=== PATIENT | female | born 1955 | race Hispanic/Latino ===

== ENCOUNTER 2017-09-08 23:10 | Emergency (ER) | payer SELFPAY ==
[2017-09-08] MEDS ORDERED: METHYLPREDNISOLONE 125 MG INJ ONE (23:41)
[2017-09-08] MEDS ORDERED: DIPHENHYDRAMINE 50 MG/ML VIAL ONE (23:42)
[2017-09-08] MEDS ORDERED: NA CHLORIDE 0.9% 1,000 ML ONE (23:42)
[2017-09-08] MEDS ORDERED: FAMOTIDINE 20 MG/2 ML VIAL IV ONE (23:42)
[2017-09-09 00:01] LABS: Absolute Lymphocytes (CBC) 1.4 K/uL (0.7-4.9); Absolute Neutrophil 4.2 K/uL (1.8-8.0); Basophils % 0.3 % (0-1.3); Hematocrit 41.3 % (36.0-45.0); Lymphocytes % 24.9 % (15.3-44.8); MCH 29.6 pg (27.0-35.0); MCV 89.1 fL (80-100); MPV 10.2 fL (7.6-11.3); Monocytes % 0.7 % (3.3-12.3); RBC Red Blood Cell Count 4.63 M/uL (3.86-4.86)
[2017-09-09 00:12] LABS: Protime INR 1.04
[2017-09-09 00:16] LABS: Potassium 3.5 mEq/L (3.6-5.0)
[2017-09-09] MEDS ORDERED: ACETAMINOPHEN 500 MG TAB ONE (00:19)
[2017-09-09 00:22] LABS: Albumin 4.3 g/dL (3.2-5.5); Bilirubin Direct 0.1 mg/dL (0-0.2); Bilirubin Total 0.3 mg/dL (0.3-1.2); Magnesium 1.8 mg/dL (1.8-2.5); Protein, Total 7.5 g/dL (6.0-8.3)
[2017-09-09 00:24] LABS: CKMB Creatine Kinase MB 6.5 ng/ml (0.3-4.0)
[2017-09-09] MEDS ORDERED: AMOX/K CLAV 875 MG TAB ONE (01:25)
[2017-09-09] MEDS ORDERED: CEFTRIAXONE 1000 MG/VIAL ONE (01:25)
[2017-09-09] MEDS ORDERED: POTASSIUM CL SA 10 MEQ TAB PO ONE (01:25)
--- NOTE | 2017-09-09 01:25 | ER ---
Nurse's Notes 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 tl2 Pt reports a tightness in her throat and states difficulty breathing. Pt taking short breaths in triage. Pt also complains of a pain in the back of her neck. Transition of care: patient was not received from another setting of care. Onset of symptoms was September 08, 2017 at 22:50. Initial Sepsis Screen: Does the patient meet any 2 criteria? RR > 20 per min. HR > 90 bpm. No. Patient's initial sepsis screen is negative. Does the patient have a suspected source of infection? No. Patient's initial sepsis screen is negative. Care prior to arrival: None. 23:19 Method Of Arrival: EMS: [facility] tl2 23:19 Acuity: ELSY 2 tl2 Triage Assessment: 23:22 General: Appears in no apparent distress. uncomfortable, Behavior is cooperative, tl2 appropriate for age, anxious, crying. Pain: Complains of pain in base of the skull Pain does not radiate. Neuro: Level of Consciousness is awake, alert, obeys commands, Oriented to person, place, time, situation. Cardiovascular: Denies chest pain. Respiratory: Reports shortness of breath Airway is patent Respiratory effort is labored, Respiratory pattern is tachypnea Breath sounds are clear bilaterally. Onset: The symptoms/episode began/occurred just prior to arrival, the patient has moderate shortness of breath. GI: No signs and/or symptoms were reported involving the gastrointestinal system. : No signs and/or symptoms were reported regarding the genitourinary system. Derm: Skin is pink, warm \T\ dry. Historical: - Allergies: 23:22 No Known Allergies; tl2 - Home Meds: 23:22 Lisinopril Oral [Active]; tl2 - PMHx: 23:22 Hypertension; tl2 - Immunization history:: Adult Immunizations up to date. - Social history:: Smoking status: Patient/guardian denies using tobacco. Screenin:25 Abuse screen: Denies threats or abuse. Nutritional screening: No deficits noted. tl2 Tuberculosis screening: No symptoms or risk factors identified. Fall Risk None identified. Assessment: 23:25 General: see triage assessment. tl2 23:27 Cardiovascular: Rhythm is sinus tachycardia. tl2 09/09 01:53 Reassessment: will discharge if repeat cardiac enzymes are negative. tl2 02:30 Reassessment: Patient appears in no apparent distress at this time. Patient and/or tl2 family updated on plan of care and expected duration. Pain level reassessed. Patient is alert, oriented x 3, equal unlabored respirations, skin warm/dry/pink. Pt and family verbalized understanding of discharge instructions, need for follow up and prescription usage Patient states feeling better. Vital Signs: 09/08 23:22 BP 154 / 104; Pulse 123; Resp 19; Temp 99.1(O); Pulse Ox 88% on R/A; Weight 63.5 kg; tl2 Height 4 ft. 11 in. (149.86 cm); 23:25 Pulse Ox 95% on 6 lpm NC; tl2 09/09 00:17 BP 159 / 81; Pulse 119; Resp 25; Temp 100.7; Pulse Ox 97% on 3 lpm NC; tl2 01:20 BP 135 / 75; Pulse 107; Resp 25; Pulse Ox 93% on R/A; tl2 02:30 BP 128 / 82; Pulse 102; Resp 20; Temp 98.2(O); Pulse Ox 94% on R/A; tl2 09/08 23:22 Body Mass Index 28.28 (63.50 kg, 149.86 cm) tl2 ED Course: 09/08 23:14 Patient arrived in ED. rg2 23:21 Triage completed. tl2 23:22 Arm band placed on right wrist. tl2 23:25 Patient has correct armband on for positive identification. Bed in low position. Call tl2 light in reach. Side rails up X 1. Adult w/ patient. 23:25 Inserted saline lock: 20 gauge in right antecubital area, using aseptic technique. tl2 Blood collected. 23:27 Conrad Guillen MD is Attending Physician. [facility] 23:45 Radiology exam delayed due to lab results not completed at this time. (BUN/Creatinine). nj 23:50 XRAY Chest (1 view) In Process Unspecified. EDMS 05 00:02 Radiology exam delayed due to lab results not completed at this time. (BUN/Creatinine). mw3 00:[address] via stretcher. nj 00:47 CT Head Brain wo Cont In Process Unspecified. EDMS 00:53 CT completed. Patient tolerated procedure well. Patient moved back from CT. nj 00:55 CT Chest For PE Angio In Process Unspecified. EDMS 02:30 No provider procedures requiring assistance completed. IV discontinued, intact, tl2 bleeding controlled, No redness/swelling at site. Pressure dressing applied. Administered Medications: 09/08 23:49 Drug: Pepcid 20 mg Route: IVP; Site: right antecubital; tl2 09/09 02:33 Follow up: Response: No adverse reaction tl2 09/08 23:49 Drug: Benadryl 25 mg Route: IVP; Site: right antecubital; tl2 09/09 02:33 Follow up: Response: No adverse reaction tl2 09/08 23:49 Drug: SOLU-Medrol 125 mg Route: IVP; Site: right antecubital; tl2 09/09 02:33 Follow up: Response: No adverse reaction tl2 09/08 23:49 Drug: NS 0.9% 1000 ml Route: IV; Rate: 125 ml/hr; Site: right antecubital; tl2 09/09 02:33 Follow up: IV Status: Completed infusion tl2 00:18 Drug: Tylenol 1000 mg Route: PO; tl2 02:32 Follow up: Response: No adverse reaction; Temperature is decreased tl2 01:29 Drug: Potassium Chloride 20 mEq Route: PO; tl1 02:32 Follow up: Response: No adverse reaction tl2 01:29 Drug: Rocephin - (cefTRIAXone) 1 grams Route: IVPB; Infused Over: 30 mins; Site: right tl1 antecubital; 02:32 Follow up: IV Status: Completed infusion; IV Intake: 100ml tl2 01:29 Drug: Augmentin 875 mg Route: PO; tl1 02:32 Follow up: Response: No adverse reaction tl2 Intake: 02:32 IV: 100ml; Total: 100ml. tl2 Outcome: 01:25 Discharge ordered by . kennedy 02:30 Discharged to home ambulatory, with family. tl2 02:30 Condition: stable 02:30 Discharge instructions given to patient, family, Instructed on discharge instructions, follow up and referral plans. medication usage, Demonstrated understanding of instructions, follow-up care, medications, Prescriptions given X 1. 02:34 Patient left the ED. tl2 Addendum: 09/12/2017 16:07 Addendum: Culture Results: Positive urine culture. Phone call Attempt #1 pt i w asymptomatic, is currently on Augmentin, no changes needed. 09/14/2017 08:13 Addendum: Culture Results: Positive urine culture. No further action required. a a5 Signatures: Dispatcher [employer] EDMS Shwetha Herrera rg2 Conrad Guillen MD MD cha Williams, Irene RN RN Marla Kim RN RN aa5 Erum Sommers RN RN tl1 Leidy David RN RN tl2 Demetris Hale Michelle mw3
--- NOTE | 2017-09-09 01:25 | EDPHYS ---
Physician Documentation [facility] Name: Mary Pennington Age: 62 yrs Sex: Female : 1955 Arrival Date: 09/08/2017 Time: 23:14 Bed 4 Private MD: ED Physician Conrad Guillen HPI: 09/08 23:38 This 62 yrs old Female presents to ER via EMS with complaints of Breathing kennedy Difficulty. 23:38 The patient has shortness of breath at rest, with light activity. Onset: The kennedy symptoms/episode began/occurred just prior to arrival. Duration: The symptoms are continuous. The patient's shortness of breath has no apparent modifying factors. Associated signs and symptoms: Pertinent positives: non-productive cough, dizziness, nausea. Severity of symptoms: At their worst the symptoms were mild moderate in the emergency department the symptoms are unchanged. The patient has not experienced similar symptoms in the past. Historical: - Allergies: 23:22 No Known Allergies; tl2 - Home Meds: 23:22 Lisinopril Oral [Active]; tl2 - PMHx: 23:22 Hypertension; tl2 - Immunization history:: Adult Immunizations up to date. - Social history:: Smoking status: Patient/guardian denies using tobacco. ROS: 23:39 Constitutional: Negative for fever, chills, and weight loss, Eyes: Negative for injury, kennedy pain, redness, and discharge, ENT: Negative for injury, pain, and discharge, Neck: Negative for injury, pain, and swelling, Cardiovascular: Negative for chest pain, palpitations, and edema, Abdomen/GI: Negative for abdominal pain, nausea, vomiting, diarrhea, and constipation, Back: Negative for injury and pain, : Negative for injury, bleeding, discharge, and swelling, MS/Extremity: Negative for injury and deformity, Skin: Negative for injury, rash, and discoloration, Neuro: Negative for headache, weakness, numbness, tingling, and seizure, Psych: Negative for depression, anxiety, suicide ideation, homicidal ideation, and hallucinations, Allergy/Immunology: Negative for hives, rash, and allergies, Endocrine: Negative for neck swelling, polydipsia, polyuria, polyphagia, and marked weight changes, Hematologic/Lymphatic: Negative for swollen nodes, abnormal bleeding, and unusual bruising. 23:39 Respiratory: Positive for cough, shortness of breath, at rest. Exam: 23:39 Constitutional: This is a well developed, well nourished patient who is awake, alert, kennedy and in no acute distress. Head/Face: Normocephalic, atraumatic. Eyes: Pupils equal round and reactive to light, extra-ocular motions intact. Lids and lashes normal. Conjunctiva and sclera are non-icteric and not injected. Cornea within normal limits. Periorbital areas with no swelling, redness, or edema. ENT: Nares patent. No nasal discharge, no septal abnormalities noted. Tympanic membranes are normal and external auditory canals are clear. Oropharynx with no redness, swelling, or masses, exudates, or evidence of obstruction, uvula midline. Mucous membranes moist. Neck: Trachea midline, no thyromegaly or masses palpated, and no cervical lymphadenopathy. Supple, full range of motion without nuchal rigidity, or vertebral point tenderness. No Meningismus. Chest/axilla: Normal chest wall appearance and motion. Nontender with no deformity. No lesions are appreciated. Cardiovascular: Regular rate and rhythm with a normal S1 and S2. No gallops, murmurs, or rubs. Normal PMI, no JVD. No pulse deficits. Respiratory: Lungs have equal breath sounds bilaterally, clear to auscultation and percussion. No rales, rhonchi or wheezes noted. No increased work of breathing, no retractions or nasal flaring. Abdomen/GI: Soft, non-tender, with normal bowel sounds. No distension or tympany. No guarding or rebound. No evidence of tenderness throughout. Back: No spinal tenderness. No costovertebral tenderness. Full range of motion. Female : Normal external genitalia. Skin: Warm, dry with normal turgor. Normal color with no rashes, no lesions, and no evidence of cellulitis. MS/ Extremity: Pulses equal, no cyanosis. Neurovascular intact. Full, normal range of motion. Neuro: Awake and alert, GCS 15, oriented to person, place, time, and situation. Cranial nerves II-XII grossly intact. Motor strength 5/5 in all extremities. Sensory grossly intact. Cerebellar exam normal. Normal gait. Psych: Awake, alert, with orientation to person, place and time. Behavior, mood, and affect are within normal limits. 23:39 Musculoskeletal/extremity: DVT Exam: No signs of deep vein thrombosis. no pain, no swelling, no tenderness, negative Homans' sign noted on exam, no appreciated bluish discoloration, no erythema, no increased warmth. Vital Signs: 23:22 BP 154 / 104; Pulse 123; Resp 19; Temp 99.1(O); Pulse Ox 88% on R/A; Weight 63.5 kg; tl2 Height 4 ft. 11 in. (149.86 cm); 23:25 Pulse Ox 95% on 6 lpm NC; tl2 09/09 00:17 BP 159 / 81; Pulse 119; Resp 25; Temp 100.7; Pulse Ox 97% on 3 lpm NC; tl2 01:20 BP 135 / 75; Pulse 107; Resp 25; Pulse Ox 93% on R/A; tl2 02:30 BP 128 / 82; Pulse 102; Resp 20; Temp 98.2(O); Pulse Ox 94% on R/A; 2 09/08 23:22 Body Mass Index 28.28 (63.50 kg, 149.86 cm) tl2 MDM: 09/08 23:27 Patient medically screened. [facility] 23:40 Data reviewed: vital signs, nurses notes, lab test result(s), EKG, radiologic studies, [facility] CT scan, plain films. 09/08 23:37 Order name: Basic Metabolic Panel; Complete Time: 00:52 [facility] 09/08 23:37 Order name: BNP; Complete Time: 00:52 [facility] 09/08 23:37 Order name: CBC with Diff; Complete Time: 00:52 [facility] 09/08 23:37 Order name: Ckmb; Complete Time: 00:52 [facility] 09/08 23:37 Order name: CPK; Complete Time: 00:52 [facility] 09/08 23:37 Order name: LFT's; Complete Time: 00:52 [facility] 09/08 23:37 Order name: Magnesium; Complete Time: 00:52 [facility] 09/08 23:37 Order name: PT-INR; Complete Time: 00:52 [facility] 09/08 23:37 Order name: Ptt, Activated; Complete Time: 00:52 [facility] 09/08 23:37 Order name: Troponin (emerg Dept Use Only); Complete Time: 00:52 [facility] 09/08 23:37 Order name: Lipase; Complete Time: 00:52 [facility] 09/08 23:38 Order name: Urine Culture [facility] 09/08 23:38 Order name: Blood Culture Adult (2) [facility] 09/08 23:38 Order name: Flu; Complete Time: 00:52 [facility] 09/08 23:37 Order name: XRAY Chest (1 view) [facility] 09/08 23:37 Order name: EKG; Complete Time: 23:38 [facility] 09/08 23:37 Order name: CT Head Brain wo Cont [facility] 09/08 23:37 Order name: CT Chest For PE Angio [facility] 09/09 01:03 Order name: Ckmb; Complete Time: 01:58 [facility] 09/09 01:03 Order name: Creatine Phosphokinase; Complete Time: 01:58 [facility] 09/09 01:03 Order name: Troponin (emerg Dept Use Only); Complete Time: 01:58 [facility] 09/09 01:39 Order name: Urine Dipstick--Ancillary (enter results) [facility] 09/08 23:37 Order name: Cardiac monitoring; Complete Time: 23:39 [facility] 09/08 23:37 Order name: EKG - Nurse/Tech; Complete Time: 23:39 [facility] 09/08 23:37 Order name: IV Saline Lock; Complete Time: 23:39 [facility] 09/08 23:37 Order name: Labs collected and sent; Complete Time: 23:39 [facility] 09/08 23:37 Order name: O2 Per Protocol; Complete Time: 23:39 [facility] 09/08 23:37 Order name: O2 Sat Monitoring; Complete Time: 23:39 [facility] 09/08 23:37 Order name: Urine Dipstick-Ancillary (obtain specimen); Complete Time: 01:20 [facility] 09/09 01:03 Order name: Repeat Cardiac Enzymes at: now please; Complete Time: 01:19 [facility] Administered Medications: 23:49 Drug: Pepcid 20 mg Route: IVP; Site: right antecubital; 09/09 02:33 Follow up: Response: No adverse reaction 09/08 23:49 Drug: Benadryl 25 mg Route: IVP; Site: right antecubital; 09/09 02:33 Follow up: Response: No adverse reaction 09/08 23:49 Drug: SOLU-Medrol 125 mg Route: IVP; Site: right antecubital; 09/09 02:33 Follow up: Response: No adverse reaction 09/08 23:49 Drug: NS 0.9% 1000 ml Route: IV; Rate: 125 ml/hr; Site: right antecubital; tl2 09/09 02:33 Follow up: IV Status: Completed infusion tl2 00:18 Drug: Tylenol 1000 mg Route: PO; tl2 02:32 Follow up: Response: No adverse reaction; Temperature is decreased tl2 01:29 Drug: Potassium Chloride 20 mEq Route: PO; tl1 02:32 Follow up: Response: No adverse reaction tl2 01:29 Drug: Rocephin - (cefTRIAXone) 1 grams Route: IVPB; Infused Over: 30 mins; Site: right tl1 antecubital; 02:32 Follow up: IV Status: Completed infusion; IV Intake: 100ml tl2 01:29 Drug: Augmentin 875 mg Route: PO; tl1 02:32 Follow up: Response: No adverse reaction tl2 Disposition: 09/09/17 01:25 Discharged to Home. Impression: Dyspnea, Fever, unspecified, Hypokalemia. - Condition is Fair. - Discharge Instructions: Fever, Adult, Upper Respiratory Infection, Adult, Fever, Adult, [id number]. - Prescriptions for Augmentin 875- 125 mg Oral Tablet - take 1 tablet by ORAL route every 12 hours for 10 days; 20 tablet. - Medication Reconciliation Form, Thank You Letter, Antibiotic Education, Prescription Opioid Use form. - Follow up: Private Physician; When: 2 - 3 days; Reason: Recheck today's complaints, Continuance of care, Re-evaluation by your physician. - Problem is new. - Symptoms have improved. Signatures: Dispatcher [employer] [facility] Conrad Guillen MD MD cha Lasagna, Tonya, RN RN tl1 Leidy David RN RN tl2 Corrections: (The following items were deleted from the chart) 02:34 01:25 09/09/2017 01:25 Discharged to Home. Impression: Dyspnea; Fever, unspecified; tl2 Hypokalemia. Condition is Fair. Discharge Instructions: Fever, Adult, Upper Respiratory Infection, Adult, Fever, Adult, [id number]. Prescriptions for Augmentin 875-125 mg Oral Tablet - take 1 tablet by ORAL route every 12 hours for 10 days; 20 tablet. and Forms are Medication Reconciliation Form, Thank You Letter, Antibiotic Education, Prescription Opioid Use. Follow up: Private Physician; When: 2 - 3 days; Reason: Recheck today's complaints, Continuance of care, Re-evaluation by your physician. Problem is new. Symptoms have improved. kennedy
[2017-09-09] MEDS ORDERED: NA CHLORIDE 0.9% 100 ML IV ONE (01:26)
[2017-09-09 01:51] LABS: CKMB Creatine Kinase MB 4.9 ng/ml (0.3-4.0)
[2017-09-09 02:19] LABS: Urine Blood TRACE (NEG); Urine Glucose NEGATIVE (NEG); Urine Protein NEGATIVE (NEG)
--- NOTE | 2017-09-09 06:28 | EKG ---
Test Date: 2017-09-08 Test Time: 23:20:10 Gas Examiner: KIERSTEN MEASUREMENT RESULTS: Intervals: Rate: 124 WV: 138 QRSD: 72 QT: 330 QTc: 474 Cameron: P: 22 WV: 138 QRS: -12 T: 31 INTERPRETIVE STATEMENTS: Sinus tachycardia Moderate voltage criteria for LVH, may be normal variant Borderline ECG Compared to ECG 06/02/1996 16:33:00 Sinus rhythm no longer present Electronically Signed On 09-09-17 06:27:53 CDT by Beck Anne
--- NOTE | 2017-09-09 08:35 | RAD REPORT ---
EXAM DESCRIPTION: RAD - Chest Single View - 09/08/2017 11:50 pm CLINICAL HISTORY: Dyspnea, chest tightness, shortness of breath COMPARISON: None. TECHNIQUE: AP portable chest image was obtained 2346 hours . FINDINGS: Lungs are clear. Heart and vasculature are normal. No measurable pleural effusion and no p neumothorax. No gross bony abnormality seen. No acute aortic findings suspected. IMPRESSION: No acute cardiopulmonary process.
--- NOTE | 2017-09-09 08:38 | RAD REPORT ---
EXAM DESCRIPTION: CT - Head Brain Wo Cont - 09/09/2017 6:36 am CLINICAL HISTORY: Hypertension, altered mental status, seizure like activity A preliminary written report was provided at the time of the study, and the report was reviewed prio r to final dictation. COMPARISON: None. TECHNIQUE: Axial 5 mm thick images of the head were obtained without IV contrast. All CT scans are performed using dose optimization technique as appropriate and may include automated exposure control or mA/KV adjustment according to patient size. FINDINGS: No intracranial hemorrhage, mass, edema or shift of mid-line structures. No acute infarcti on changes seen. No abnormal extra-axial fluid collections. Ventricles are normal. Mastoid air cells and visualized portions of the paranasal sinuses are clear. No acute bony findings. IMPRESSION: Negative non-contrast CT head examination.
--- NOTE | 2017-09-09 08:43 | RAD REPORT ---
EXAM DESCRIPTION: CT - Chest For Pe Angio - 09/09/2017 12:55 am CLINICAL HISTORY: Chest pain, shortness of breath A preliminary written report was provided at the time of the study, and the report was reviewed prio r to final dictation. COMPARISON: Chest films same date TECHNIQUE: Dynamically enhanced 3 mm thick images of the chest were obtained during administration o f approximately 150mL Isovue 370 IV contrast. Coronal and oblique reconstruction images were generate d and reviewed. Exam utilizes a protocol to evaluate the pulmonary arterial tree. All CT scans are performed using dose optimization technique as appropriate and may include automated exposure control or mA/KV adjustment according to patient size. FINDINGS: No pulmonary emboli are identified. Far peripheral subsegmental branch assessment is limit ed due to motion. Emboli are not suspected. The aorta as imaged shows no acute or suspicious finding. No pericardial thickening or effusion. No mass or consolidation. Lung markings are accentuated by motion. Mild edema or infiltrate would be possible. No pleural based mass. No pleural effusion or pleural thickening. No mediastinal or hilar suspicious masses. No chest wall masses or abnormal axillary lymphadenopathy. IMPRESSION: No pulmonary emboli identified. Far peripheral subsegmental branch assessment is limited but emboli are not suspected. Lung markings are accentuated by motion. Minimal interstitial edema or infiltrate could be masked. No other significant or suspicious findings.
== END 2017-09-09 02:34 | disposition home or self-care (01) ==
LOC: ER 23:10
DX: R50.9 Fever, unspecified (principal); E87.6 Hypokalemia; I10 Essential (primary) hypertension
CPT/HCPCS: 36415; 70450; 71045; 71275; 80048; 80076; 81003; 82550; 82553; 83690; 83735; 83880; 84484; 85025; 85610; 85730; 87040; 87077; 87086; 87088; 87186; 87804; 93005; 96361; 96365; 96375; 99285; J2930; J7030

== ENCOUNTER 2018-12-31 17:57 | Emergency (ER) | payer SELFPAY ==
[2018-12-31 19:18] LABS: Absolute Lymphocytes (CBC) 1.6 K/uL (0.7-4.9); Basophils % 0.1 % (0-1.3); Hematocrit 38.4 % (36.0-45.0); MPV 9.9 fL (7.6-11.3); RBC Red Blood Cell Count 4.29 M/uL (3.86-4.86)
--- NOTE | 2018-12-31 19:51 | RAD REPORT ---
EXAM DESCRIPTION: US - Extremity Venous Uni Ltd - 12/31/2018 7:39 pm CLINICAL HISTORY: Right leg pain and swelling COMPARISON: None. TECHNIQUE: Real-time sonographic evaluation of the right lower extremity deep venous systems was per formed. FINDINGS: Normal compressibility, flow augmentation, phasic flow and spontaneous flow are identified in the right lower extremity common femoral, superficial femoral, popliteal and posterior tibial vei ns. No intraluminal filling defects seen. IMPRESSION: No DVT in the right lower extremity.
[2018-12-31 19:59] LABS: BUN Blood Urea Nitrogen 12 mg/dL (7-18); Bicarbonate 25 mmol/L (21-32); Glucose Level 94 mg/dL (74-106); Potassium 4.3 mmol/L (3.5-5.1); Sodium Level 139 mmol/L (136-145); Troponin (Emerg Dept Use Only) < 0.02 ng/mL (0.0-0.045)
--- NOTE | 2018-12-31 20:38 | RAD REPORT ---
EXAM DESCRIPTION: CT - Chest For Pe Angio - 12/31/2018 8:24 pm CLINICAL HISTORY: DYSPNEA COMPARISON: Chest For Pe Angio dated 09/09/2017 TECHNIQUE: Dynamically enhanced 3 mm thick images of the chest were obtained during administration o f approximately 150mL Isovue 370 IV contrast. Coronal and oblique MIP reconstruction images were gene rated and reviewed. Exam utilizes a protocol to evaluate the pulmonary arterial tree. All CT scans are performed using dose optimization technique as appropriate and may include automated exposure control or mA/KV adjustment according to patient size. FINDINGS: No pulmonary emboli are identified. The aorta as imaged shows no acute or suspicious finding. No pericardial thickening or effusion. No focal mass or consolidation. Interstitial markings are prominent, accentuated by motion. There is hazy ground-glass airspace opacities scattered in the posterior lower lung hood. No pleural effusio n or pleural thickening. No mediastinal or hilar suspicious masses. No chest wall masses or abnormal axillary lymphadenopathy. IMPRESSION: No pulmonary emboli identified. No focal mass or consolidation of the lung parenchyma. Interstitial and hazy alveolar opacities are p resent suggesting an alveolitis/pneumonitis process.
--- NOTE | 2018-12-31 21:17 | EDPHYS ---
[facility] Name: Mary Pennington Age: 63 yrs Sex: Female : 1955 Arrival Date: 12/31/2018 Time: 18:00 Bed 8 Private MD: ED Physician Mauro Yancey HPI: 12/31 21:57 This 63 yrs old Female presents to ER via Ambulatory with complaints of kdr Abnormal Lab Results. 21:57 The patient has been having lower extremity pain and swelling mostly the right leg for kdr the past several months. She had a recent blood draw which showed an elevated DD. She was sent to the ED for evaluation. She has also c/o pain to her upper extremities when trying to lift her arms over her head. With occasional SOB. Onset: The symptoms/episode began/occurred gradually, 2 month(s) ago. Severity of symptoms: At their worst the symptoms were mild in the emergency department the symptoms are unchanged. The patient has experienced similar episodes in the past, chronically, Slowly worsening . The patient has not recently seen a physician. Historical: - Allergies: 18:13 Unknown diuretic; aa5 - Home Meds: 18:15 gabapentin 100 mg oral cap 3 times per day [Active]; lisinopril 20 mg Oral tab 1 tab aa5 once daily [Active]; spironolactone 25 mg Oral tab 1 tab once daily [Active]; - PMHx: 18:13 Hypertension; aa5 - PSHx: 18:13 cyst removed; Tubal ligation; aa5 - Immunization history:: Adult Immunizations unknown. - Social history:: Smoking status: Patient/guardian denies using tobacco. - Ebola Screening: : No symptoms or risks identified at this time. ROS: 21:57 Constitutional: Negative for fever, chills, and weight loss, Eyes: Negative for injury, kdr pain, redness, and discharge, Neck: Negative for injury, pain, and swelling, Cardiovascular: Negative for chest pain, palpitations, and edema, Respiratory: Negative for shortness of breath, cough, wheezing, and pleuritic chest pain, Abdomen/GI: Negative for abdominal pain, nausea, vomiting, diarrhea, and constipation, Back: Negative for injury and pain, : Negative for injury, bleeding, discharge, and swelling, MS/Extremity: Negative for injury and deformity, There appears to be mild swelling to the right lower exterrmity - no edema Skin: Negative for injury, rash, and discoloration, Neuro: Negative for headache, weakness, numbness, tingling, and seizure activity. Psych: Negative for depression, anxiety, suicide ideation, homicidal ideation, and hallucinations, Allergy/Immunology: Negative for hives, rash, and allergies, Endocrine: Negative for neck swelling, polydipsia, polyuria, polyphagia, and marked weight changes, Hematologic/Lymphatic: Negative for swollen nodes, abnormal bleeding, and unusual bruising. Exam: 21:57 Constitutional: This is a well developed, well nourished patient who is awake, alert, kdr and in no acute distress. Head/Face: Normocephalic, atraumatic. Eyes: Pupils equal round and reactive to light, extra-ocular motions intact. Lids and lashes normal. Conjunctiva and sclera are non-icteric and not injected. Cornea within normal limits. Periorbital areas with no swelling, redness, or edema. Neck: Trachea midline, no thyromegaly or masses palpated, and no cervical lymphadenopathy. Supple, full range of motion without nuchal rigidity, or vertebral point tenderness. No Meningismus. Chest/axilla: Normal chest wall appearance and motion. Nontender with no deformity. No lesions are appreciated. Cardiovascular: Regular rate and rhythm with a normal S1 and S2. No gallops, murmurs, or rubs. Normal PMI, no JVD. No pulse deficits. Respiratory: Lungs have equal breath sounds bilaterally, clear to auscultation and percussion. No rales, rhonchi or wheezes noted. No increased work of breathing, no retractions or nasal flaring. Abdomen/GI: Soft, non-tender, with normal bowel sounds. No distension or tympany. No guarding or rebound. No evidence of tenderness throughout. Back: No spinal tenderness. No costovertebral tenderness. Full range of motion. Skin: Warm, dry with normal turgor. Normal color with no rashes, no lesions, and no evidence of cellulitis. Neuro: Awake and alert, GCS 15, oriented to person, place, time, and situation. Cranial nerves II-XII grossly intact. Motor strength 5/5 in all extremities. Sensory grossly intact. Cerebellar exam normal. Normal gait. Psych: Awake, alert, with orientation to person, place and time. Behavior, mood, and affect are within normal limits. 21:57 Musculoskeletal/extremity: Extremities: The right leg appears to be slightly larger that the left but there is no apparent edema. Vital Signs: 18:15 BP 146 / 85; Pulse 84; Resp 16 S; Temp 98.0(TE); Pulse Ox 96% on R/A; Weight 63.5 kg aa5 (R); Height 4 ft. 11 in. (149.86 cm) (R); Pain 0/10; 19:11 BP 128 / 69; Pulse 85; Resp 17; Temp 97.9; Pulse Ox 99% ; Pain 5/10; rr5 19:32 BP 126 / 70; Pulse 78; Resp 16; Pulse Ox 99% on R/A; mt 20:35 BP 127 / 75; Pulse 87; Resp 17; Pulse Ox 98% ; rr5 21:20 BP 136 / 79; Pulse 89; Resp 15; Pulse Ox 98% ; rr5 22:00 BP 121 / 70; Pulse 85; Resp 17; Pulse Ox 99% ; rr5 18:15 Body Mass Index 28.28 (63.50 kg, 149.86 cm) aa5 MDM: 21:16 Patient medically screened. kdr 22:01 Data reviewed: vital signs, nurses notes, lab test result(s), radiologic studies. kdr Counseling: I had a detailed discussion with the patient and/or guardian regarding: the historical points, exam findings, and any diagnostic results supporting the discharge/admit diagnosis, lab results, radiology results, the need for outpatient follow up. 12/31 18:57 Order name: CBC with Diff; Complete Time: 19:39 kdr 12/31 18:57 Order name: Chem 7; Complete Time: 21:12 kdr 12/31 18:57 Order name: CT Chest For PE Angio; Complete Time: 21:12 kdr 12/31 18:57 Order name: D-Dimer; Complete Time: 19:39 kdr 12/31 18:57 Order name: Troponin (emerg Dept Use Only); Complete Time: 21:12 kdr 12/31 18:57 Order name: Extremity Venous Unilateral Ltd; Complete Time: 21:12 kdr Administered Medications: No medications were administered Disposition: 12/31/18 21:16 Discharged to Home. Impression: Shortness of breath. - Condition is Stable. - Discharge Instructions: Shortness of Breath, [id number]. - Prescriptions for Tramadol 50 mg Oral Tablet - take 1 tablet by ORAL route every 8 hours as needed; 12 tablet. - Medication Reconciliation Form, Thank You Letter form. - Follow up: Private Physician; When: 2 - 3 days; Reason: If symptoms return, Further diagnostic work-up, Recheck today's complaints, Continuance of care, Re-evaluation by your physician. - Problem is new. - Symptoms have improved. Signatures: Dispatcher [employer] EDMS Mauro Yancey MD MD kdr Marla La RN RN aa5 Jarek Torres RN RN rr5 Corrections: (The following items were deleted from the chart) 21:19 21:16 12/31/2018 21:16 Discharged to Home. Impression: rr. Condition is Stable. Forms kdr are Medication Reconciliation Form, Thank You Letter, Antibiotic Education, Prescription Opioid Use. Follow up: Private Physician; When: 2 - 3 days; Reason: If symptoms return, Further diagnostic work-up, Recheck today's complaints, Continuance of care, Re-evaluation by your physician. Problem is new. Symptoms have improved. kdr 22:09 21:19 12/31/2018 21:16 Discharged to Home. Impression: Shortness of breath. Condition rr5 is Stable. Forms are Medication Reconciliation Form, Thank You Letter, Antibiotic Education, Prescription Opioid Use. Follow up: Private Physician; When: 2 - 3 days; Reason: If symptoms return, Further diagnostic work-up, Recheck today's complaints, Continuance of care, Re-evaluation by your physician. Problem is new. Symptoms have improved. kdr
--- NOTE | 2018-12-31 21:17 | ER ---
Nurse's Notes [facility] Name: Mary Pennington Age: 63 yrs Sex: Female : 1955 Arrival Date: 12/31/2018 Time: 18:00 Bed 8 Private MD: Diagnosis: Shortness of breath Presentation: 12/31 18:13 Presenting complaint: Presenting complaint: Patient states: abnormal lab results, aa5 D-Dimer 1405 on 12/27/18, pt states "the clinic just got the results today so they said to come here". Pt reports intermittent SOB,denies chest pain. Pt also reports charline leg swelling, right leg swelling greater than left. 18:13 Transition of care: patient was not received from another setting of care. Onset of aa5 symptoms was December 31, 2018. Risk Assessment: Do you want to hurt yourself or someone else? Patient reports no desire to harm self or others. Initial Sepsis Screen: Does the patient meet any 2 criteria? No. Patient's initial sepsis screen is negative. Does the patient have a suspected source of infection? No. Patient's initial sepsis screen is negative. Care prior to arrival: None. 18:13 Acuity: ELSY 2 aa5 18:13 Method Of Arrival: Ambulatory aa5 Historical: - Allergies: 18:13 Unknown diuretic; aa5 - Home Meds: 18:15 gabapentin 100 mg oral cap 3 times per day [Active]; lisinopril 20 mg Oral tab 1 tab aa5 once daily [Active]; spironolactone 25 mg Oral tab 1 tab once daily [Active]; - PMHx: 18:13 Hypertension; aa5 - PSHx: 18:13 cyst removed; Tubal ligation; aa5 - Immunization history:: Adult Immunizations unknown. - Social history:: Smoking status: Patient/guardian denies using tobacco. - Ebola Screening: : No symptoms or risks identified at this time. Screenin:29 Abuse screen: Denies threats or abuse. Denies injuries from another. Nutritional iw screening: No deficits noted. Tuberculosis screening: No symptoms or risk factors identified. Fall Risk IV access (20 points). Assessment: 18:28 General: Appears in no apparent distress. Behavior is calm, cooperative. General: iw Reports fatigue for. Pain: Complains of pain in right hip, right calf and anterior aspect of right ankle Pain currently is 7 out of 10 on a pain scale. Neuro: Level of Consciousness is awake, alert, obeys commands, Oriented to person, place, time, situation, Moves all extremities. Full function. Cardiovascular: Reports shortness of breath, Denies chest pain, Capillary refill < 3 seconds in bilateral fingers Patient's skin is warm and dry. Pulses are palpable in right dorsalis pedis artery and left dorsalis pedis artery Edema. Respiratory: Reports shortness of breath on exertion Respiratory effort is even, unlabored, Respiratory pattern is regular, symmetrical, Breath sounds are clear bilaterally. GI: Abdomen is flat, non-distended. Derm: Skin is intact, is healthy with good turgor. Musculoskeletal: Range of motion: intact in all extremities, Swelling present in right calf, right desai and anterior aspect of right ankle. 19:10 General: Appears in no apparent distress. comfortable, Behavior is calm, cooperative, rr5 appropriate for age. Pain: Complains of pain in right leg Pain does not radiate. Pain currently is 5 out of 10 on a pain scale. Quality of pain is described as aching, Pain began gradually, Is intermittent. Neuro: Level of Consciousness is awake, alert, obeys commands, Oriented to person, place, time, situation, Appropriate for age. Cardiovascular: Capillary refill < 3 seconds Patient's skin is warm and dry. Respiratory: Airway is patent Respiratory effort is even, unlabored, Respiratory pattern is regular, symmetrical. GI: No signs and/or symptoms were reported involving the gastrointestinal system. : No signs and/or symptoms were reported regarding the genitourinary system. EENT: No signs and/or symptoms were reported regarding the EENT system. Derm: Skin is intact, is healthy with good turgor, Skin temperature is warm. Musculoskeletal: Swelling present in right leg. 20:35 Reassessment: Patient appears in no apparent distress at this time. Patient and/or rr5 family updated on plan of care and expected duration. Pain level reassessed. Patient is alert, oriented x 3, equal unlabored respirations, skin warm/dry/pink. awaiting for results. 21:40 Reassessment: Patient appears in no apparent distress at this time. Patient and/or rr5 family updated on plan of care and expected duration. Pain level reassessed. Patient is alert, oriented x 3, equal unlabored respirations, skin warm/dry/pink. reassessment made done by ED provider ordered for discharge, patient agreed. 22:05 Reassessment: Patient appears in no apparent distress at this time. Patient and/or rr5 family updated on plan of care and expected duration. Pain level reassessed. Patient is alert, oriented x 3, equal unlabored respirations, skin warm/dry/pink. discharge instruction given and explained without complaints made verbalized understanding. Vital Signs: 18:15 BP 146 / 85; Pulse 84; Resp 16 S; Temp 98.0(TE); Pulse Ox 96% on R/A; Weight 63.5 kg aa5 (R); Height 4 ft. 11 in. (149.86 cm) (R); Pain 0/10; 19:11 BP 128 / 69; Pulse 85; Resp 17; Temp 97.9; Pulse Ox 99% ; Pain 5/10; rr5 19:32 BP 126 / 70; Pulse 78; Resp 16; Pulse Ox 99% on R/A; mt 20:35 BP 127 / 75; Pulse 87; Resp 17; Pulse Ox 98% ; rr5 21:20 BP 136 / 79; Pulse 89; Resp 15; Pulse Ox 98% ; rr5 22:00 BP 121 / 70; Pulse 85; Resp 17; Pulse Ox 99% ; rr5 18:15 Body Mass Index 28.28 (63.50 kg, 149.86 cm) aa5 ED Course: 18:00 Patient arrived in ED. mr 18:13 Arm band placed on Patient placed in an exam room, on a stretcher. aa5 18:15 Mauro Yancey MD is Attending Physician. kdr 18:17 Jeri Reddy, DANY is Primary Nurse. iw 18:25 EKG done, by ED staff, reviewed by Montrell Mckeon MD. dh3 18:29 Inserted saline lock: 20 gauge in right antecubital area, using aseptic technique. iw Blood collected. 18:36 Triage completed. aa5 19:00 Patient has correct armband on for positive identification. Placed in gown. Bed in low rr5 position. Call light in reach. Side rails up X2. 19:05 Initial lab(s) drawn, by me, sent to lab. iw 19:34 Notified ED physician of a critical lab result(s). D-Dimer of 1780. Dr Yancey notified.bb 19:42 US Extremity Venous Unilateral Ltd In Process Unspecified. EDMS 19:57 Radiology exam delayed due to lab results not completed at this time. (BUN/Creatinine). vm2 20:24 CT Chest For PE Angio In Process Unspecified. EDMS 22:00 No provider procedures requiring assistance completed. IV discontinued, intact, rr5 bleeding controlled, No redness/swelling at site. Pressure dressing applied. Administered Medications: No medications were administered Outcome: 21:16 Discharge ordered by . kdr 22:00 Discharged to home ambulatory, with family. rr5 22:00 Condition: stable 22:00 Discharge instructions given to patient, Instructed on discharge instructions, follow up and referral plans. medication usage, Demonstrated understanding of instructions, follow-up care, medications, Prescriptions given X 1. 22:09 Patient left the ED. rr5 Signatures: Dispatcher [employer] EDNH Mauro Yancey MD MD kdr Rivera, Armida mr Emily Barragan RN RN Jeri Reyna RN RN Marla La RN RN aa5 Lore Martinez [facility] Jennifer Ordoñez [place], [facility] Jarek Torres, RN RN rr5 Corrections: (The following items were deleted from the chart) 18:38 18:30 BP 146 / 85; Pulse 84bpm; Resp 16bpm; Spontaneous; Pulse Ox 96% RA; iw aa5
[2018-12-31 23:40] VITALS: TEMP 97.9
[2018-12-31 23:42] VITALS: BP 127/75; O2SAT 98
--- NOTE | 2019-01-01 10:37 | EKG ---
Test Date: 2018-12-31 Test Time: 18:21:30 Complaint Adjuster: PAZ MEASUREMENT RESULTS: Intervals: Rate: 75 TX: 136 QRSD: 76 QT: 372 QTc: 415 [place]: P: 39 TX: 136 QRS: 3 T: 33 INTERPRETIVE STATEMENTS: Normal sinus rhythm Moderate voltage criteria for LVH, may be normal variant Borderline ECG Compared to ECG 09/08/2017 23:20:10 Sinus tachycardia no longer present Electronically Signed On 01-01-19 10:36:38 CDT by Fili Chopra
== END 2018-12-31 22:09 | disposition home or self-care (01) ==
LOC: ER 17:57
DX: R06.02 Shortness of breath (principal); I10 Essential (primary) hypertension; Z88.8 Allergy status to other drugs, medicaments and biological substances
CPT/HCPCS: 36415; 71275; 80048; 84484; 85025; 85379; 93005; 93971; 99284; Q9967